=== PATIENT | female | born 1965 | race Caucasian/White ===

== ENCOUNTER 2016-06-29 06:48 | Emergency (ER) | payer MEDICAID, OTHER ==
[~2016-06-29] VITALS: Ht 162.6 cm; Wt 74.6 kg
[~2016-06-29 06:48] MED LIST: EQUATE PO; ESTR0.3T PO; LACT1CAP35 PO
[2016-06-29 07:25] LABS: HEMOGLOBIN 14.7 g/dL (11.7-16.4)
[2016-06-29] MEDS ORDERED: ONDANSETRON 2MG/ML, 2ML ONE (07:30)
[2016-06-29] MEDS ORDERED: ONDANSETRON 2MG/ML, 2ML IVPush ONE (07:30)
[2016-06-29] MEDS ORDERED: SODIUM CHLORIDE 0.9% 1,000ML IVBOLUS ONE (07:30)
[2016-06-29] MEDS ORDERED: SODIUM CHLORIDE FLUSH 10ML SYR IVF ONE (07:30)
[2016-06-29] MEDS ORDERED: PROP20TA PO (07:35)
[2016-06-29] MEDS ORDERED: TOPI200T6 PO (07:35)
[2016-06-29] MEDS ORDERED: SUMA50TA4 PO (07:35)
[2016-06-29] MEDS ORDERED: BUTA-177 PO (07:35)
[2016-06-29 07:38] LABS: ASPARTATE AMINO TRANSFERASE 91 U/L (15-37); BLOOD UREA NITROGEN 12 mg/dL (7-18)
[2016-06-29] MEDS ORDERED: OMNIPAQUE 350 MG/ML, 100ML BOTTLE ONE (08:34)
[2016-06-29 09:01] LABS: DAU SCREEN DISCLAIMER
[2016-06-29 09:51] VITALS: BP 142/84
== END 2016-06-29 09:57 | disposition home or self-care (01) ==
LOC: ED 08:14
DX: K52.9 Noninfective gastroenteritis and colitis, unspecified (principal); A09 Infectious gastroenteritis and colitis, unspecified; I10 Essential (primary) hypertension; G43.909 Migraine, unspecified, not intractable, without status migrainosus
CPT/HCPCS: 36415; 74177; 80053; 80307; 81003; 83690; 85025; 85610; 96361; 96374; 99285; J2405; J7030; Q9967

== ENCOUNTER 2016-08-22 18:53 | Emergency (ER) | payer OTHER ==
[~2016-08-22] VITALS: Ht 160 cm; Wt 73.8 kg
[~2016-08-22 18:53] MED LIST changes: +BUTA-177 PO; +PROP20TA PO; +SUMA50TA4 PO; +TOPI200T6 PO
[2016-08-22 18:54] VITALS: BP 129/86
== END 2016-08-22 20:29 | disposition home or self-care (01) ==
LOC: ED 20:21
DX: G43.909 Migraine, unspecified, not intractable, without status migrainosus (principal); R21 Rash and other nonspecific skin eruption; M54.2 Cervicalgia; I10 Essential (primary) hypertension; Z90.710 Acquired absence of both cervix and uterus
CPT/HCPCS: 70450; 72125; 99284

== ENCOUNTER 2017-02-15 01:14 | Emergency (ER) | payer OTHER ==
[~2017-02-15] VITALS: Ht 162.6 cm; Wt 70.0 kg
[2017-02-15] MEDS ORDERED: SODIUM CHLORIDE FLUSH 10ML SYR IVF ONE (01:30)
[2017-02-15 01:47] LABS: HEMATOCRIT 44.4 % (34.6-47.8); HEMOGLOBIN 15.2 g/dL (11.7-16.4); WHITE BLOOD COUNT 6.3 x10^3/uL (3.4-10)
[2017-02-15 01:57] LABS: BLOOD UREA NITROGEN 4 mg/dL (7-18)
[2017-02-15] MEDS ORDERED: ASPIRIN 325 MG TABLET PO STA (02:43)
[2017-02-15] MEDS ORDERED: ASPIRIN 325 MG TABLET ONE (03:01)
[2017-02-15 03:11] VITALS: BP 124/72
== END 2017-02-15 03:14 | disposition home or self-care (01) ==
LOC: ED 03:08
DX: G45.9 Transient cerebral ischemic attack, unspecified (principal); I10 Essential (primary) hypertension; G43.909 Migraine, unspecified, not intractable, without status migrainosus; F17.200 Nicotine dependence, unspecified, uncomplicated; Z88.0 Allergy status to penicillin
CPT/HCPCS: 36415; 70450; 80048; 82040; 85025; 85610; 85730; 93005; 99285